=== PATIENT | female | born 1960 | race Caucasian/White ===

== ENCOUNTER → 2019-07-20 | Outpatient (CLI) | payer MEDICAID ==
--- NOTE | 2019-07-20 11:18 | XR ---
EXAMINATION TYPE: XR hand complete LT, XR wrist complete LT DATE OF EXAM: 07/20/2019 CLINICAL HISTORY: Nontraumatic left hand and wrist pain. Arthritis. TECHNIQUE: Frontal, lateral and oblique images of the left wrist and hand are obtained. Scaphoid vie w was also obtained. COMPARISON: None. FINDINGS: There is no acute fracture/dislocation evident in the left wrist nor hand. The joint space s in the left wrist and hand appear aligned. Joint space narrowing is seen of the first and carpal me tacarpal joint with opposing surface sclerosis and mild bony proliferative change. Small osteophytes are also seen of the distal interphalangeal joints. Carpal carpal interspaces are maintained. Alignme nt of the radiocarpal joint is also maintained. No negative nor positive ulnar variance is seen. Soft tissues are unremarkable. The overlying soft tissue appears unremarkable. There is no ulnar styloid erosion. No tophi are seen. No calcification of the triangular fibrocartilage. IMPRESSION: Mild arthropathy of the left hand is in a typical distribution of osteoarthritis. No curr ent findings to suggest rheumatoid arthritis, gout, psoriatic arthritis or CPPD.
--- NOTE | 2019-07-20 12:48 | XR ---
EXAMINATION TYPE: XR shoulder complete LT DATE OF EXAM: 07/20/2019 CLINICAL HISTORY: Left shoulder pain, nontraumatic TECHNIQUE: Three views of the left shoulder are obtained. COMPARISON: None. FINDINGS: There is no acute fracture/dislocation evident in the left shoulder. The acromioclavicula r and glenohumeral joint spaces appear aligned with mild joint space narrowing and small marginal ost eophytes of the acromioclavicular joint and glenohumeral joint. There are calcifications along the in sertion of the rotator cuff near the greater tuberosity. Small probable sclerotic bone island is also seen in the left humeral head. The visualized ribs are intact and unremarkable. IMPRESSION: There is no acute fracture or dislocation in the left shoulder. Calcific tendinosis of t he rotator cuff. Mild acromioclavicular and glenohumeral arthropathy.
== END | disposition home or self-care (01) ==
LOC: RADXRMAIN 10:32
PROVIDERS: ATTEND Internal Medicine
DX: M19.012 Primary osteoarthritis, left shoulder (principal); M19.042 Primary osteoarthritis, left hand

== ENCOUNTER → 2020-09-26 | Outpatient (CLI) | payer MEDICAID ==
--- NOTE | 2020-09-26 14:52 | XR ---
EXAMINATION TYPE: XR knee complete LT DATE OF EXAM: 09/26/2020 CLINICAL HISTORY: Posterior pain for months. TECHNIQUE: Three views of the left knee are obtained. COMPARISON: None. FINDINGS: There is no acute fracture/dislocation evident in left knee. [id number] tricompartme nt joint space loss greatest medial tibiofemoral compartment. Mild to moderate spurring medial tibiof emoral compartment . Increased density suspicious for small suprapatellar joint effusion on lateral v iew. IMPRESSION: As above.
== END | disposition home or self-care (01) ==
LOC: RADXRMAIN 14:30
PROVIDERS: ATTEND Internal Medicine
DX: M25.762 Osteophyte, left knee (principal); M25.862 Other specified joint disorders, left knee

== ENCOUNTER 2020-09-30 09:47 | Emergency (ER) | payer MEDICAID ==
[2020-09-30 10:02] VITALS: RESP 18
[2020-09-30] MEDS ORDERED: ACET/COD 300 MG/30 MG STARTER PACK 6 TAB BTL PO STA (10:20)
[2020-09-30] MEDS ORDERED: KETOROLAC 15 MG/ML 1 ML VIAL IM STA (10:20)
--- NOTE | 2020-09-30 10:39 | ED ---
General Adult HPI - General Chief complaint: Extremity Problem,Nontraumatic Stated complaint: L Leg Pain Time Seen by Provider: 09/30/20 10:08 Source: patient, RN notes reviewed, old records reviewed Mode of arrival: wheelchair Limitations: physical limitation - History of Present Illness Initial comments: 60-year-old female patient past with history of COPD, hysterectomy, to ED with chief complaint of left knee pain. Patient reports that this pain has been ongoing for about 1 year however has been worse in the last couple of weeks. She denies any acute injury or trauma. She does report that she has a history of a Rollins's cyst however she does not know what knee this was on. She states that the pain is particularly in the posterior aspect of the left knee and is worse with movement of the knee. She denies any other acute complaints at this time. Systemic: Pt denies fatigue, fever/chills, rash. Pt denies weakness, night sweats, weight loss. Neuro: Pt denies headache, visual disturbances, syncope or pre-syncope. HEENT: Pt denies ocular discharge or irritation, otalgia, rhinorrhea, pharyngitis or notable lymphadenopathy. Cardiopulmonary: Pt denies chest pain, SOB, heart palpitations, dyspnea on exertion. Abdominal/GI: Pt denies abdominal pain, n/v/d. : Pt denies dysuria, burning w/ urination, frequency/urgency. Denies new onset urinary or bowel incontinence. Neuro: Pt denies new onset weakness, paresthesias. - Related Data Allergies Allergy/AdvReac Type Severity Reaction Status Date / Time No Known Allergies Allergy Verified 09/30/20 10:03 Review of Systems ROS Statement: Those systems with pertinent positive or pertinent negative responses have been documented in the HPI. ROS Other: All systems not noted in ROS Statement are negative. Past Medical History Past Medical History: COPD, Hyperlipidemia Additional Past Medical History / Comment(s): celiac disease History of Any Multi-Drug Resistant Organisms: None Reported Past Surgical History: Hysterectomy Additional Past Surgical History / Comment(s): vein stripping Right leg Past Psychological History: No Psychological Hx Reported Smoking Status: Former smoker Past Alcohol Use History: None Reported Past Drug Use History: None Reported General Exam - General Exam Comments Initial Comments: Constitutional: NAD, AOX3, Pt has pleasant affect. HEENT: NC/AT, trachea midline, neck supple, no lymphadenopathy. External ears appear normal, without discharge. Mucous membranes moist. EOM intact. There is no scleral icterus. No pallor noted. Cardiopulmonary: RRR, no murmurs, rubs or gallops, no JVD noted. Lungs CTAB in anterior and posterior kennedy. No peripheral edema. Abdominal exam: Abdomen soft and non-distended. Neuro: CN II-XII grossly intact. No nuchal rigidity. No raccon eyes, no ladd sign, no hemotympanum. No cervical spinal tenderness. MSK:range of motion of left knee reproduces discomfort. Limited range of motion secondary to discomfort. No focal area of tenderness. No skin changes. No posterior calf tenderness bilaterally, homans sign negative bilaterally. Posterior tibialis and radial pulse +2 bilaterally. Sensation intact in upper and lower extremities. Full active ROM in upper and lower extremities, 5/5 stregnth. Limitations: physical limitation Course Vital Signs 09/30/20 09:57 Temperature 98.6 F Pulse Rate 92 Respiratory 18 Rate Blood Pressure 121/83 O2 Sat by Pulse 96 Oximetry Medical Decision Making - Medical Decision Making 60-year-old female patient to ED for left posterior knee pain ongoing for the last year or worsen the last couple weeks. Physical exam did display some reproducible discomfort and limited range of motion secondary to pain. No skin changes. All son does display large Rollins's cyst. previous plain films from 3 days ago were reviewed which did display some degenerative changes. No acute fracture. She'll discharged outpatient follow-up with primary care provider and orthopedic consult and will return to ER with any worsening symptoms. Case discussed with Dr. Suarez. Disposition Clinical Impression: Knee pain, Bakers cyst Disposition: HOME SELF-CARE Condition: Stable Instructions (If sedation given, give patient instructions): Bakers Cyst (ED), Knee Pain (ED) Additional Instructions: Follow up with PCP and orthopedic surgeon tomorrow. Use crutches as needed. Return to ED with any worsening symptoms. Is patient prescribed a controlled substance at d/c from ED?: No Referrals: Nani Hayes DO [Primary Care Provider] - 1-2 days Mick Villa DO [Doctor of Osteopathic Medicine] - 1-2 days
--- NOTE | 2020-09-30 11:04 | US ---
EXAMINATION TYPE: US venous doppler duplex LE DATE OF EXAM: 09/30/2020 10:56 AM COMPARISON: NONE CLINICAL HISTORY: posterior knee pain. Pt states left posterior knee pain SIDE PERFORMED: Left TECHNIQUE: The lower extremity deep venous system is examined utilizing real time linear array sonog beto with graded compression, doppler sonography and color-flow sonography. VESSELS IMAGED: Common Femoral Vein Deep Femoral Vein Greater Saphenous Vein * Femoral Vein Popliteal Vein Small Saphenous Vein * Proximal Calf Veins (* superficial vessels) Left Leg: Negative for DVT, Probable Rollins's cyst left pop fossa= 6.9 x 0.9 x 2.6 cm Grayscale, color doppler, spectral doppler imaging performed of the deep veins of the left lower extr emity. Satisfactory blood flow, phasicity, and compressibility. IMPRESSION: No ultrasound evidence for acute DVT in the left lower extremity. Moderate to large size d elongated popliteal cyst noted towards end of study.
[2020-09-30 11:30] VITALS: BP 120/88; PULSE 84; TEMP 98.8
== END 2020-09-30 11:31 | disposition home or self-care (01) ==
LOC: EC 09:47
DX: M71.22 Synovial cyst of popliteal space [Baker], left knee (principal); Z87.891 Personal history of nicotine dependence
CPT/HCPCS: 93971; 99284; 96372; J1885